=== PATIENT | female | born 1995 | race Asian ===

== ENCOUNTER 2022-09-05 18:39 | Emergency (ER) | payer OTHER ==
[~2022-09-05] VITALS: Ht 165.1 cm; Wt 121.1 kg
[2022-09-05 18:58] VITALS: BP 129/59; TEMP 98.8
[2022-09-05] MEDS ORDERED: AMOX875T8 PO (19:11)
== END 2022-09-05 19:30 | disposition home or self-care (01) ==
LOC: ED 18:39
DX: L02.31 Cutaneous abscess of buttock (principal)
CPT/HCPCS: 96372; 99282; J0696

== ENCOUNTER 2022-10-23 06:34 | Emergency (ER) | payer OTHER ==
[~2022-10-23] VITALS: Ht 165.1 cm; Wt 120.2 kg
[~2022-10-23 06:34] MED LIST: AMOX875T8 PO
[2022-10-23 06:50] VITALS: BP 114/55; TEMP 98.7
== END 2022-10-23 07:34 | disposition home or self-care (01) ==
LOC: ED 06:34
DX: L03.116 Cellulitis of left lower limb (principal)
CPT/HCPCS: 99281

== ENCOUNTER 2022-10-25 22:08 | Emergency (ER) | payer OTHER ==
[~2022-10-25] VITALS: Ht 165.1 cm; Wt 120.2 kg
[2022-10-25 22:25] VITALS: BP 135/75; TEMP 99
[2022-10-25 23:16] LABS: PLATELET COUNT 298 K/uL (152-353)
[2022-10-25 23:37] LABS: POTASSIUM 3.6 mmol/L (3.6-5.2)
== END 2022-10-25 23:59 | disposition home or self-care (01) ==
LOC: ED 22:08
PROVIDERS: Family Medicine
PROC: 0H98XZZ Drainage of Buttock Skin, External Approach (ICD-10-PCS; principal; 2022-10-25)
DX: L05.91 Pilonidal cyst without abscess (principal); Z3A.20 20 weeks gestation of pregnancy
CPT/HCPCS: 80053; 81002; 85027; 87040; 87070; 87205; 99283

== ENCOUNTER 2022-12-22 00:08 | Emergency (ER) | payer OTHER ==
[~2022-12-22] VITALS: Ht 165.1 cm; Wt 124.3 kg
[2022-12-22 01:46] VITALS: BP 104/68; TEMP 98.4
== END 2022-12-22 01:46 | disposition home or self-care (01) ==
LOC: ED 00:08
DX: B37.31 Acute candidiasis of vulva and vagina (principal); Z33.1 Pregnant state, incidental
CPT/HCPCS: 81000; 87086; 87088; 87490; 87590; 96372; 99283; J0696

== ENCOUNTER 2023-01-23 21:33 | Emergency (ER) | payer OTHER ==
[~2023-01-23] VITALS: Ht 165.1 cm; Wt 126.6 kg
[2023-01-23 21:40] VITALS: BP 147/63; TEMP 98.9
[2023-01-23 22:05] LABS: PLATELET COUNT 277 K/uL (152-353)
== END 2023-01-23 23:15 | disposition home or self-care (01) ==
LOC: ED 21:33
PROVIDERS: Family Medicine
DX: J32.8 Other chronic sinusitis (principal); R05.8 Other specified cough; Z3A.33 33 weeks gestation of pregnancy; O99.013 Anemia complicating pregnancy, third trimester; Z20.822 Contact with and (suspected) exposure to COVID-19
CPT/HCPCS: 36415; 81002; 85027; 87502; 87635; 87651; 99282; U0003

== ENCOUNTER 2023-01-31 13:03 | Emergency (ER) | payer OTHER ==
[~2023-01-31] VITALS: Ht 165.1 cm; Wt 130.2 kg
[2023-01-31 15:40] VITALS: BP 115/78; TEMP 97.9
== END 2023-01-31 15:45 | disposition home or self-care (01) ==
LOC: ED 13:03
DX: R42 Dizziness and giddiness (principal); Z3A.34 34 weeks gestation of pregnancy; Z20.822 Contact with and (suspected) exposure to COVID-19
CPT/HCPCS: 81002; 87502; 87635; 99283; U0003

== ENCOUNTER 2023-02-25 20:18 | Emergency (ER) | payer OTHER ==
[~2023-02-25] VITALS: Ht 165.1 cm; Wt 134.4 kg
[2023-02-25 20:30] VITALS: TEMP 98.7
[2023-02-25 22:10] VITALS: BP 126/81
== END 2023-02-25 22:10 | disposition home or self-care (01) ==
LOC: ED 20:18
DX: R60.9 Edema, unspecified (principal); Z3A.37 37 weeks gestation of pregnancy
CPT/HCPCS: 81002; 99282

== ENCOUNTER 2023-07-22 11:08 | Outpatient (CLI) | payer OTHER | END 2023-07-22 18:55 | disposition home or self-care (01) | LOC: US 11:08 | PROVIDERS: ATTEND Nurse Practitioner Family | DX: R60.0 Localized edema (principal) ==